=== PATIENT | male | born 1970 | race Two or more races ===

== ENCOUNTER 2024-10-20 13:34 | Inpatient (IN) | payer OTHER, MEDICAID ==
[~2024-10-20] VITALS: Ht 172.7 cm; Wt 111.1 kg
[~2024-10-20 13:34] MED LIST: NORPTMEDS CO
--- NOTE | 2024-10-20 13:40 | ED.PDOC ---
History of Present Illness HPI Comments 54-year-old male brought by paramedics because shortness a breath for the past two days. Patient says that shortness a breath is upon rest and exertion. History of hypertension diabetes he does take Lasix but he denies CHF. 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 Blood pressure on arrival 140/87 with a heart rate of 116. Denies any other symptoms. Chief Complaint: Shortness of Breath Time Seen by MD: 13:36 Primary Care Provider: PIPO Reviewed Notes: Nurses Notes, Medications, Allergies Allergies: Coded Allergies: NO KNOWN ALLERGIES (Unverified , 07/25/13) Home Meds Reported Medications No Reported Medication (NO REPORTED MEDICATION) Ea, 0 CO UNK, EA PATIENT HAS NO REPORTED MEDICATIONS 07/25/13 Information Source: Patient, Emergency Med Personnel Mode of Arrival: EMS Severity: Moderate Timing: Days Duration: Since onset Past Medical History PAST MEDICAL HISTORY: CVA, DM, HTN Surgical History: Denies all surgeries Family History Family History: Unknown Social History Smoker: Non-Smoker Alcohol: Denies ETOH Use Drugs: Denies Drug Use Lives In: Home Constitutional: denies: chills, diaphoresis, fatigue, fever, malaise, sweats, weakness, others EENTM: denies: blurred vision, double vision, ear bleeding, ear discharge, ear drainage, ear pain, ear ringing, eye pain, eye redness, hearing loss, mouth pain, mouth swelling, nasal discharge, nose bleeding, nose congestion, nose pain, photophobia, tearing, throat pain, throat swelling, voice changes, others Respiratory: reports: shortness of breath; denies: cough, hemoptysis, orthopnea, SOB at rest, SOB with excertion, stridor, wheezing, others Cardiovascular: denies: chest pain, dizzy spells, diaphoresis, Dyspnea on exertion, edema, irregular heart beat, left arm pain, lightheadedness, palpitations, PND, syncope, others Gastrointestinal: denies: abdomen distended, abdominal pain, blood streaked bowels, constipated, diarrhea, dysphagia, difficulty swallowing, hematemesis, melena, nausea, poor appetite, poor fluid intake, rectal bleeding, rectal pain, vomiting, others Genitourinary: denies: burning, dysuria, flank pain, frequency, hematuria, incontinence, penile discharge, penile sore, pain, testicle pain, testicle swelling, urgency, others Neurological: denies: dizziness, fainting, headache, left sided numbness, left sided weakness, numbness, paresthesia, pre-existing deficit, right sided numbness, right sided weakness, seizure, speech problems, tingling, tremors, weakness, others Musculoskeletal: denies: back pain, gout, joint pain, joint swelling, muscle pain, muscle stiffness, neck pain, others Integumetry: denies: bruises, change in color, change in hair/nails, dryness, laceration, lesions, lumps, rash, wounds, others Allergic/Immunocompromised: denies: Difficulty Healing, Frequent Infections, Hives, Itching, others Hematologic/Lymphatic: denies: anemia, blood clots, easy bleeding, easy bruising, swollen glands, others Endocrine: denies: excessive hunger, excessive sweating, excessive thirst, excessive urination, flushing, intolerance to cold, intolerance to heat, unexplained weight gain, unexplained weight loss, others Psychiatric: denies: anxiety, bipolar disorder, depression, hopeless, panic disorder, schizophrenia, sleepless, suicidal, others Physical Exam General Appearance: Moderate Distress HEENT: Normal ENT Inspection, Pharynx Normal, TMs Normal Neck: Full Range of Motion, Non-Tender, Normal, Normal Inspection Respiratory: Chest Non-Tender, Lungs Clear, No Accessory Muscle Use, No Respiratory Distress, Normal Breath Sounds Cardiovascular: No Edema, No JVD, No Murmur, No Gallop, Normal Peripheral Pulses, Tachycardia Breast Exam: Deferred Gastrointestinal: No Organomegaly, Non Tender, No Pulsatile Mass, Normal Bowel Sounds, Soft Genitalia: Deferred Pelvic: Deferred Rectal: Deferred Extremities: No calf tenderness, Normal capillary refill, Normal range of motion, Non-tender, No pedal edema, Swelling (Mild bilateral lower extremity) Musculoskeletal : Apperance: Normal Neurologic: Alert, director payment II-XII nml as Tested, No Motor Deficits, Normal Affect, Normal Mood, No Sensory Deficits Cerebellar Function: NOT DONE Reflexes: NOT DONE Skin: Dry, Normal Color, Warm Peripheral Pulses: 3+ Radial (R), 3+ Radial (L) Lymphatic: No Adenopathy Was a procedure done? Was a procedure done?: No Differential Dx Considerations may include: CHF X-Ray, Labs, Meds, VS Vital Signs Date Time Temp Pulse Resp B/P (MAP) Pulse Ox O2 Delivery O2 Flow Rate FiO2 10/20/24 13:39 98.7 116 18 140/87 (104) 96 98.7 Lab Test 10/20/24 13:48 Range/Units White Blood Count 6.9 4.4-10.8 10^3/uL Red Blood Count 4.92 4.5-5.90 10^6/uL Hemoglobin 15.6 13.5-17.5 g/dL Hematocrit 46.1 41.0-53.0 % Mean Corpuscular Volume 93.5 80.0-100.0 fL Mean Corpuscular Hemoglobin 31.7 28.0-32.0 pg Mean Corpuscular Hemoglobin Concent 33.9 32.0-36.0 g/dL Red Cell Distribution Width 13.6 11.8-14.3 % Platelet Count 343 140-450 10^3/uL Mean Platelet Volume 7.0 6.9-10.8 fL Neutrophils (%) (Auto) 74.3 37.0-80.0 % Lymphocytes (%) (Auto) 18.4 10.0-50.0 % Monocytes (%) (Auto) 6.2 0.0-12.0 % Eosinophils (%) (Auto) 0.7 0.0-7.0 % Basophils (%) (Auto) 0.4 0.0-2.0 % Neutrophils # (Auto) 5.2 1.6-8.6 10 ^3/uL Lymphocytes # (Auto) 1.3 0.4-5.4 10 ^3/uL Monocytes # (Auto) 0.4 0-1.3 10 ^3/uL Eosinophils # (Auto) 0 0-0.8 10 ^3/uL Basophils # (Auto) 0 0-0.2 10 ^3/uL Nucleated Red Blood Cells 0.0 % Sodium Level 139 136-145 mmol/L Potassium Level 3.9 3.5-5.1 mmol/L Chloride Level 103 98-107 mmol/L Carbon Dioxide Level 28 20-31 mmol/L Anion Gap 8 5-15 Blood Urea Nitrogen 13 9-23 mg/dL Creatinine 0.96 0.700-1.30 mg/dL Glomerular Filtration Rate Calc 93 >90 mL/min BUN/Creatinine Ratio 13.5 10.0-20.0 Serum Glucose 189 H 74-106 mg/dL Calcium Level 10.3 8.7-10.4 mg/dL Troponin I High Sensitivity 8 </=54 ng/L Patient alert. Vitals stable. Complaining of shortness a breath. Answering questions. Heart rate is high. Bilateral lower extremity swelling. He is on Lasix. Reviewed his history. Continue monitoring. Time of 1ST Reevaluation: 13:38 Reevaluation 1ST: Unchanged Patient Education/Counseling: Diagnosis, Treatment, Prognosis Family Education/Counseling: No Family Present Departure 1 Departure Time of Disposition: 13:39 Impression: Primary Impression: CHF (congestive heart failure) Qualified Codes: I50.43 - Acute on chronic combined systolic (congestive) and diastolic (congestive) heart failure Disposition: ADMITTED INPATIENT Admit to: Med Surg Condition: Guarded Critical Care Note Critical Care Time?: No Stability Stability form required: No Heart Score Heart Score: Heart Score Response (Comments) Value History Slightly Suspicious 0 EKG Normal 0 Age 45-64 1 Risk Factors >3 or Hx ASHD 2 Troponin Normal limit 0 Total 3 SEBASTIEN CHOI MD October 20, 2024 13:40
[2024-10-20 14:05] LABS: Basophils # (auto) 0 10 ^3/uL (0-0.2); Basophils % (auto) 0.4 % (0.0-2.0); Eosinophils # (auto) 0 10 ^3/uL (0-0.8); Eosinophils % (auto) 0.7 % (0.0-7.0); Hematocrit 46.1 % (41.0-53.0); Hemoglobin 15.6 g/dL (13.5-17.5); Lymphocytes # (auto) 1.3 10 ^3/uL (0.4-5.4); Lymphocytes % (auto) 18.4 % (10.0-50.0); Mean Corpuscular Hemoglobin 31.7 pg (28.0-32.0); Mean Corpuscular Hgb Conc. 33.9 g/dL (32.0-36.0); Mean Corpuscular Volume 93.5 fL (80.0-100.0); Monocytes # (auto) 0.4 10 ^3/uL (0-1.3); Monocytes % (auto) 6.2 % (0.0-12.0); Neutrophils # (auto) 5.2 10 ^3/uL (1.6-8.6); Neutrophils % (auto) 74.3 % (37.0-80.0); Platelet Count (auto) 343 10^3/uL (140-450); Red Blood Cells 4.92 10^6/uL (4.5-5.90); Red Cell Distribution Width 13.6 % (11.8-14.3); White Blood Cell 6.9 10^3/uL (4.4-10.8)
[2024-10-20 14:12] LABS: Chloride 103 mmol/L (98-107); Potassium 3.9 mmol/L (3.5-5.1); Sodium 139 mmol/L (136-145)
[2024-10-20 14:13] LABS: Anion Gap 8 (5-15); Calcium 10.3 mg/dL (8.7-10.4); Carbon Dioxide 28 mmol/L (20-31)
[2024-10-20 14:18] LABS: BUN/Creatinine Ratio 13.5 (10.0-20.0); Blood Urea Nitrogen 13 mg/dL (9-23)
[2024-10-20 14:19] LABS: Glucose 189 mg/dL (74-106)
--- NOTE | 2024-10-20 14:19 | DVH ---
XY CHEST PORTABLE, HISTORY: sob COMPARISON: None None TECHNICAL DATA: 1 view of the chest was obtained. FINDINGS: Lines and tubes: None Cardiomediastinal silhouette: normal Pulmonary vasculature: normal Lung expansion: normal Lung airspace: normal Lung interstitium: normal Pleura: normal Pneumothorax: no Bones: Unremarkable Other: no IMPRESSION: No acute intrathoracic abnormality.
[2024-10-20 15:09] VITALS: PULSE 109; RESP 17; O2SAT 96
--- NOTE | 2024-10-20 15:50 | DVHHP2 ---
History of Present Illness Reason for Visit: sob History of Present Illness 54-year-old male past medical history hypertension diabetes CVA with right-sided weakness hyperlipidemia denies surgical history chief complaint patient states he has been shortness of the breath that has been going on for two days patient states it is shortness of the breath worse on exertion. Patient denies any chest pain he does complain of bilateral lower extremity swelling more on the right than left denies any calf pain patient states he has been has not been able to sleep due to the pain he denies any history heart failure patient states he is taking his meds as prescribed he is not on blood thinners when evaluating patient's labs and imaging from the ED CBC was unremarkable glucose was 189 otherwise CMP unremarkable chest x-ray unremarkable with these findings we will admit patient add troponin D-dimer order echocardiogram ultrasound to rule out PE if echocardiogram is abnormal when need to consider Cards consult Past Medical History see hpi above Past Surgical History see hpi above Family History Reviewed, non-contributory to the management of this case. Past Social History The patient lives at home, denies smoking, alcohol or illicit drugs abuse. Review of Systems Constitutional: No: Fever, Chills, Sweats, Weakness, Malaise, Other Eyes: No: Pain, Vision change, Conjunctivae inflammation, Eyelid inflammation, Other, Redness ENT: No: Ear pain, Ear discharge, Nose pain, Nose discharge, Nose congestion, Mouth pain, Mouth swelling, Throat pain, Throat swelling, Other Respiratory: Shortness of breath, SOB with excertion; No: Cough, Dry, Wheezing, Hemoptysis, Pleuritic Pain, Sputum, Wheezing, Other Cardiovascular: No: Chest Pain, Palpitations, Orthopnea, Paroxysmal Noc. Dyspnea, Edema, Lt Headedness, Other Gastrointestinal: No: Nausea, Vomiting, Abdominal Pain, Diarrhea, Constipation, Melena, Hematochezia, Other Genitourinary: No Dysuria, No Frequency, No Incontinence, No Hematuria, No Retention, No Other Musculoskeletal: No: other, neck pain, shoulder pain, arm pain, back pain, hand pain, leg pain, foot pain Skin: No: Rash, Lesions, Jaundice, Bruising, Other Neurological: No: Weakness, Numbness, Incoordination, Change in speech, Confusion, Seizures, Other Allergies: Coded Allergies: NO KNOWN ALLERGIES (Unverified , 07/25/13) Exam Vital Signs Vital Signs Date Time Temp Pulse Resp B/P (MAP) Pulse Ox O2 Delivery O2 Flow Rate FiO2 10/20/24 15:09 98.4 109 17 150/90 (110) 96 98.4 10/20/24 15:09 Room Air* 0 21 General Appearance: Alert, Oriented X3, Cooperative, No acute distress HEENT: Atraumatic, PERRLA, EOMI, Mucous membr. moist/pink Respiratory: Clear to auscultation, Normal air movement Cardiovascular: Regular rate, Normal S1, Normal S2, No murmurs Abdominal: Normal bowel sounds, Soft, No tenderness, No hepatospenomegaly, No masses Extremities: No clubbing, No cyanosis, No edema, Normal pulses, No tenderness/swelling Skin: No rashes, No breakdown, No significant lesion Neuro: Normal gait, Normal speech, Strength at 5/5 X4 ext, Normal tone, Sensation intact, Cranial nerves 3-12 NL, Other (right side weakness from prior stroke ) Psych/Mental Status: Mental status NL, Mood NL Labs/Xrays Chest x-ray unremarkable I reviewed labs, imaging CT scan abdomen pelvis, EKG and all diagnostic studies on this patient from ED records and the medical chart Labs Test 10/20/24 13:48 Range/Units White Blood Count 6.9 4.4-10.8 10^3/uL Red Blood Count 4.92 4.5-5.90 10^6/uL Hemoglobin 15.6 13.5-17.5 g/dL Hematocrit 46.1 41.0-53.0 % Mean Corpuscular Volume 93.5 80.0-100.0 fL Mean Corpuscular Hemoglobin 31.7 28.0-32.0 pg Mean Corpuscular Hemoglobin Concent 33.9 32.0-36.0 g/dL Red Cell Distribution Width 13.6 11.8-14.3 % Platelet Count 343 140-450 10^3/uL Mean Platelet Volume 7.0 6.9-10.8 fL Neutrophils (%) (Auto) 74.3 37.0-80.0 % Lymphocytes (%) (Auto) 18.4 10.0-50.0 % Monocytes (%) (Auto) 6.2 0.0-12.0 % Eosinophils (%) (Auto) 0.7 0.0-7.0 % Basophils (%) (Auto) 0.4 0.0-2.0 % Neutrophils # (Auto) 5.2 1.6-8.6 10 ^3/uL Lymphocytes # (Auto) 1.3 0.4-5.4 10 ^3/uL Monocytes # (Auto) 0.4 0-1.3 10 ^3/uL Eosinophils # (Auto) 0 0-0.8 10 ^3/uL Basophils # (Auto) 0 0-0.2 10 ^3/uL Nucleated Red Blood Cells 0.0 % Sodium Level 139 136-145 mmol/L Potassium Level 3.9 3.5-5.1 mmol/L Chloride Level 103 98-107 mmol/L Carbon Dioxide Level 28 20-31 mmol/L Anion Gap 8 5-15 Blood Urea Nitrogen 13 9-23 mg/dL Creatinine 0.96 0.700-1.30 mg/dL Glomerular Filtration Rate Calc 93 >90 mL/min BUN/Creatinine Ratio 13.5 10.0-20.0 Serum Glucose 189 H 74-106 mg/dL Calcium Level 10.3 8.7-10.4 mg/dL Troponin I High Sensitivity 8 </=54 ng/L Assessment/Plan Assessment/Plan acute dyspnea without hypoxia cxr normal ordered ddimer fu results ordered lovenox 1mg/kg for now if ddimer is positive order ct angio ordered echo to check cardiac function and ef fu results if abnormal consult cards pt was provided lasix x1 dose in er 02 prn to keep sats >92% acute ble edema ordered us eval for dvt ordered lovenox for now chronic problems htn dm ISS cva with right side weakness fen/ppx diet hl scd lovenox plan admit to medicine Plan discussed with: Patient Date of Service: October 20, 2024 Billing Provider: DUY DOOLEY DNP Common Visit Codes: 36469-MRMAYRG INP/OBS CARE (HIGH) DUY DOOLEY DNP October 20, 2024 15:50
[2024-10-20] MEDS ORDERED: ONDANSETRON HCL 4 MG/2 ML VIAL IV PRN (16:00)
[2024-10-20] MEDS ORDERED: TEMAZEPAM 15 MG CAP PO PRN (16:00)
[2024-10-20] MEDS ORDERED: MORPHINE SULFATE INJ 2 MG/ml SYRG IV PRN (16:00)
[2024-10-20] MEDS ORDERED: DOCUSATE SOD 100 MG CAP PO PRN (16:00)
[2024-10-20] MEDS ORDERED: NITROGLYCERIN 0.4 MG SL TAB SL PRN (16:00)
[2024-10-20] MEDS ORDERED: DEXTROSE (50%) 50ML SYRG IV PRN (16:00)
[2024-10-20] MEDS ORDERED: MORPHINE SULFATE 4 MG/ML SYR/VIAL IV PRN (16:45)
--- NOTE | 2024-10-20 16:56 | DVH ---
Procedure: US LT Lower DVT Study Date and Requested Time: 10/20/2024 04:03 PM History: eval for dvt Comparison: None Technique: Multiple high resolution lundberg-scale images with and without compression obtained of the le ft lower extremity veins, including the common femoral vein, deep femoral vein, proximal mid and dist al superficial femoral vein, and popliteal vein. Additional limited images of the greater saphenous v ein also obtained. Augmentation performed as indicated. Color and spectral doppler flow images obtain ed as indicated. Findings: No visible intraluminal venous thrombus. No evidence of incompressibility or abnormal color or spectr al Doppler flow visualized in the left lower extremity veins including, the common femoral vein, deep femoral vein, proximal mid and distal superficial femoral vein, and popliteal vein. Greater saphenou s vein grossly unremarkable. Impression: No sonographic evidence of left lower extremity deep venous thrombosis.
[2024-10-20] MEDS: ACCU-CHEK COMFORT CURVE STRIP VI SCH (17:00)
[2024-10-20] MEDS: InsuLIN REG 1unit/0.01ml Soln (100units/ml) SC SCH (17:00)
[2024-10-20 17:11] LABS: INR 0.97 (0.9-1.15); Prothrombin Time 10.3 sec (9.3-11.8)
[2024-10-20] MEDS ORDERED: ASPI1TAB20 PO (20:17)
[2024-10-20] MEDS ORDERED: FURO1TAB33 PO (20:17)
[2024-10-20] MEDS ORDERED: ATOR20TA PO (20:17)
[2024-10-20] MEDS ORDERED: HYDR25TA4 PO (20:17)
[2024-10-20] MEDS ORDERED: METF500S3 PO (20:17)
[2024-10-20] MEDS ORDERED: ATOR10TA PO (20:17)
[2024-10-20] MEDS ORDERED: HYDR12.59 PO (20:17)
[2024-10-20] MEDS ORDERED: APIX2.5T PO (20:17)
[2024-10-20] MEDS ORDERED: HYDR-4902 PO (20:17)
[2024-10-20] MEDS ORDERED: HYDR50TA47 PO (20:41)
[2024-10-20] MEDS ORDERED: METH-1181 PO (20:41)
[2024-10-20] MEDS ORDERED: DICL1.3P TD (20:41)
[2024-10-20] MEDS ORDERED: ATOR10TA52 PO (20:41)
[2024-10-20] MEDS ORDERED: LOSA-535 PO (20:41)
[2024-10-20] MEDS: ENOXAPARIN SOD 40 MG/0.4 ML SYRINGE SC SCH (23:42)
[2024-10-20] MEDS: HYDROcodone-ACET 5/325MG TAB PO PRN (23:42)
[2024-10-21] VITALS (10 sets, daily range): BP systolic 132–150; BP diastolic 66–95; PULSE 66–84; RESP 16–20; TEMP 97.5–97.7; O2SAT 95–98
[2024-10-21 07:52] LABS: Basophils # (auto) 0 10 ^3/uL (0-0.2); Basophils % (auto) 0.4 % (0.0-2.0); Eosinophils # (auto) 0.1 10 ^3/uL (0-0.8); Eosinophils % (auto) 1.5 % (0.0-7.0); Hematocrit 41.2 % (41.0-53.0); Hemoglobin 13.9 g/dL (13.5-17.5); Lymphocytes # (auto) 2.8 10 ^3/uL (0.4-5.4); Lymphocytes % (auto) 40.4 % (10.0-50.0); Mean Corpuscular Hemoglobin 31.6 pg (28.0-32.0); Mean Corpuscular Hgb Conc. 33.6 g/dL (32.0-36.0); Mean Corpuscular Volume 93.9 fL (80.0-100.0); Monocytes # (auto) 0.5 10 ^3/uL (0-1.3); Monocytes % (auto) 7.5 % (0.0-12.0); Neutrophils # (auto) 3.5 10 ^3/uL (1.6-8.6); Neutrophils % (auto) 50.2 % (37.0-80.0); Nucleated Red Blood Cells % 0.1 %; Platelet Count (auto) 298 10^3/uL (140-450); Red Blood Cells 4.39 10^6/uL (4.5-5.90); Red Cell Distribution Width 13.5 % (11.8-14.3)
[2024-10-21 08:10] LABS: Alanine Aminotransferase 11 U/L (7-40); Alkaline Phosphatase 56 U/L (46-116); Anion Gap 10 (5-15); BUN/Creatinine Ratio 13.3 (10.0-20.0); Blood Urea Nitrogen 10 mg/dL (9-23); Calcium 9.8 mg/dL (8.7-10.4); Carbon Dioxide 25 mmol/L (20-31); Chloride 107 mmol/L (98-107); Glucose 96 mg/dL (74-106); Sodium 142 mmol/L (136-145); Total Protein 6.6 g/dL (5.7-8.2)
[2024-10-21 08:11] LABS: Albumin 4.3 g/dL (3.2-4.8)
[2024-10-21 08:13] LABS: Aspartate Aminotransferase 12 U/L (13-40); Potassium 3.4 mmol/L (3.5-5.1)
--- NOTE | 2024-10-21 13:48 | DVHPN2 ---
Reviewed: Care Plan, H&P, Labs, Medications, Previous Orders, Radiology Changes from previous H/P or p: No Changes General: Per HPI Eyes: No Pain, No Vision change, No Conjunctivae inflammation, No Eyelid inflammation, No Other, No Redness ENT: No Ear pain, No Ear discharge, No Nose pain, No Nose discharge, No Nose congestion, No Mouth pain, No Mouth swelling, No Throat pain, No Throat swelling, No Other Cardiovascular: No Chest Pain, No Palpitations, No Orthopnea, No Paroxysmal Noc. Dyspnea, No Edema, No Lt Headedness, No Other Respiratory: No Cough, No Dry; Shortness of breath, SOB with excertion; No Wheezing, No Hemoptysis, No Pleuritic Pain, No Sputum, No Other Gastrointestinal: No Nausea, No Vomiting, No Abdominal Pain, No Diarrhea, No Constipation, No Melena, No Hematochezia, No Other Genitourinary: No Dysuria, No Frequency, No Incontinence, No Hematuria, No Retention, No Other Musculoskeletal: No other, No neck pain, No shoulder pain, No arm pain, No back pain, No hand pain, No leg pain, No foot pain Skin: No Rash, No Lesions, No Jaundice, No Bruising, No Other Objective Vitals Vital Signs Date Time Temp Pulse Resp B/P (MAP) Pulse Ox O2 Delivery O2 Flow Rate FiO2 10/21/24 13:22 97.7 70 16 139/88 (105) 96 97.7 10/21/24 08:00 Room Air* 0 21 General Appearance: Alert, Oriented X3, Cooperative Chest/Breasts: Discharge Cardiovascular: Regular rate, Normal S1, Normal S2 Neuro: Normal gait, Normal speech Medications Current Medications Medications Dose Ordered Sig/Gonzales Route Start Time Stop Time Status Last Admin Dose Admin Temazepam 15 mg QHSP PRN PO 10/20/24 16:00 Ondansetron HCl 4 mg Q4HP PRN IV 10/20/24 16:00 Docusate Sodium 100 mg BIDPRN PRN PO 10/20/24 16:00 Morphine Sulfate 2 mg Q4HPRN PRN IV 10/20/24 16:00 Cancel Enoxaparin Sodium 100 mg BID SC 10/20/24 22:00 10/21/24 09:25 100 MG Nitroglycerin 0.4 mg Q5MINP PRN SL 10/20/24 16:00 Diagnostic Test (Pha) 1 strip ACHS 10/20/24 17:00 10/21/24 11:42 1 STRIP Insulin Human Regular ACHS SC 10/20/24 17:00 10/20/24 23:00 3 UNITS Dextrose 50 ml UD PRN IV 10/20/24 16:00 Morphine Sulfate 2 mg Q4HPRN PRN IV 10/20/24 16:45 Acetaminophen/ Hydrocodone Bitart 1 tab Q6HPRN PRN PO 10/20/24 23:45 10/21/24 05:52 1 TAB Hydralazine HCl 10 mg Q6HP PRN IV 10/20/24 23:45 Laboratory Results Laboratory Tests 10/21/24 05:58 Chemistry Test 10/20/24 13:48 10/21/24 05:58 Calcium Level 10.3 mg/dL (8.7-10.4) 9.8 mg/dL (8.7-10.4) Albumin 4.3 g/dL (3.2-4.8) Total Protein 6.6 g/dL (5.7-8.2) Coagulation Test 10/20/24 16:30 Prothrombin Time 10.3 sec (9.3-11.8) Prothrombin Time INR 0.97 (0.9-1.15) D-Dimer, Quantitative < 0.19 mg/L FEU (0.0-0.49) Cardiac Markers Test 10/20/24 13:48 B-Type Natriuretic Peptide 14.38 pg/mL (0-100) LFT Test 10/21/24 05:58 Alanine Aminotransferase (ALT) 11 U/L (7-40) Alkaline Phosphatase 56 U/L (46-116) Aspartate Amino Transferase (AST) 12 U/L (13-40) L Total Bilirubin 1.0 mg/dL (0.2-1.0) Labs and/or images reviewed: Labs reviewed by me, Image(s) reviewed by me Assessment/Plan Assessment/Plan 54-year-old male past medical history hypertension diabetes CVA with right-sided weakness hyperlipidemia denies surgical history chief complaint patient states he has been shortness of the breath that has been going on for two days patient states it is shortness of the breath worse on exertion. Patient denies any chest pain he does complain of bilateral lower extremity swelling more on the right than left denies any calf pain patient states he has been has not been able to sleep due to the pain he denies any history heart failure patient states he is taking his meds as prescribed he is not on blood thinners when evaluating patient's labs and imaging from the ED CBC was unremarkable glucose was 189 otherwise CMP unremarkable chest x-ray unremarkable with these findings we will admit patient add troponin D-dimer order echocardiogram ultrasound to rule out PE if echocardiogram is abnormal when need to consider Cards consult acute dyspnea without hypoxia cxr normal ordered ddimer fu results ordered lovenox 1mg/kg for now if ddimer is positive order ct angio ordered echo to check cardiac function and ef fu results if abnormal consult cards pt was provided lasix x1 dose in er 02 prn to keep sats >92% acute ble edema ordered us eval for dvt ordered lovenox for now suspected diastolic CHF chronic problems htn dm ISS cva with right side weakness Plan discussed with: Patient Date of Service: October 21, 2024 Billing Provider: SHILOH BALLESTEROS DO Common Visit Codes: [id number] INP/OBS CARE(HIGH) SHILOH BALLESTEROS DO October 21, 2024 13:48
[2024-10-21 14:50] LABS: Magnesium 1.9 mg/dL (1.6-2.6)
--- NOTE | 2024-10-21 14:50 | DVHINCON2 ---
SONIA ESCAMILLA [facility] 10/21/24 1450: Date Seen: October 21, 2024 Referring Physician MD Clarisa Reason for Consultation Suspected CHF History of Present Illness This is a 54-year-old male patient who presents to emergency room with chief complaint of shortness of breath and bilateral lower extremity edema for three days prior to emergency room arrival. Cardiology has been consulted at this time for suspected CHF. Initial twelve lead electrocardiogram reveals normal sinus rhythm without any significant ST segment changes. Serial troponin levels have been negative. The patient denies any chest pain. He describes orthopnea at night. Initial BNP level of 14.38pg/mL. Significant past medical history includes hypertension, dyslipidemia, type 2 diabetes mellitus, CVA with right- sided deficit, arthritis, and obesity. Past Medical History Past medical history reviewed. No other significant than mentioned above. Past Surgical History Denies any previous surgeries Family History: Patient reports no known family medical history. Family History Family history reviewed. Social History Denies the use of tobacco, alcohol or illicit drugs. Allergies: Coded Allergies: NO KNOWN ALLERGIES (Unverified , 07/25/13) Home Meds Reported Medications Atorvastatin Calcium (ATORVASTATIN CALCIUM) 10 Mg Tab, 1 TAB PO DAILY, #30 TAB 5 Refills 10/20/24 Diclofenac Epolamine (Flector) 1.3 % Dis, 1.3 % TD, DIS 10/20/24 Losartan Potassium (Losartan Potassium) 100 Mg Tab, 1 TAB PO DAILY, #30 TAB 5 Refills 10/20/24 Methocarbamol (Methocarbamol) 500 Mg Tab, 500 MG PO, TAB 10/20/24 Hydralazine Hcl (Hydralazine Hcl) 50 Mg Tab, 1 TAB PO TID, #90 TAB 5 Refills 10/20/24 Hydrocodone-Acetaminophen (Hydrocodone Bitartrate/AC 5-325 mg) 1 Tab Tab, 1 TAB PO, TAB 10/20/24 Hydrochlorothiazide (Hydrochlorothiazide) 25 Mg Tab, 50 MG PO, TAB 10/20/24 Aspirin (Aspir-81) 81 Mg Tab, 1 TAB PO DAILY, #30 TAB 5 Refills 10/20/24 Metformin HCl (Metformin Hydrochloride) 500 Mg/5 Ml Mckenna, 500 MG PO, ML 10/20/24 Discontinued Reported Medications Atorvastatin Calcium (Lipitor) 20 Mg Tab, 1 TAB PO DAILY, #90 TAB 1 Refill 10/20/24 Apixaban Base (ELIQUIS) 2.5 Mg Tab, 2.5 MG PO BID, TAB 10/20/24 Home Meds Home medications reviewed. Current Medications Current Medications Medications (Trade) Dose Ordered Sig/Gonzales Route PRN Reason Start Time Stop Time Status Last Admin Temazepam (Restoril) 15 mg QHSP PRN PO FOR INSOMNIA 10/20/24 16:00 Ondansetron HCl (Zofran) 4 mg Q4HP PRN IV NAUSEA / VOMITING 10/20/24 16:00 Docusate Sodium (Colace Capsule) 100 mg BIDPRN PRN PO FOR CONSTIPATION 10/20/24 16:00 Morphine Sulfate 2 mg Q4HPRN PRN IV SEVERE PAIN (7-10 PAIN SCALE) 10/20/24 16:00 Cancel Enoxaparin Sodium (Lovenox) 100 mg BID SC 10/20/24 22:00 10/21/24 09:25 Nitroglycerin (Ntrostat Sublingual) 0.4 mg Q5MINP PRN SL FOR CHEST PAIN 10/20/24 16:00 Diagnostic Test (Pha) (Accu-Chek Comfort Curve T) 1 strip ACHS 10/20/24 17:00 10/21/24 11:42 Insulin Human Regular (InsuLIN R) ACHS SC 10/20/24 17:00 10/20/24 23:00 Dextrose 50 ml UD PRN IV Blood Sugar LESS THAN 60 10/20/24 16:00 Morphine Sulfate 2 mg Q4HPRN PRN IV SEVERE PAIN (7-10 PAIN SCALE) 10/20/24 16:45 Acetaminophen/ Hydrocodone Bitart ([place] 5/325MG Tab) 1 tab Q6HPRN PRN PO MODERATE PAIN (4-6 PAIN SCALE) 10/20/24 23:45 10/21/24 05:52 Hydralazine HCl (Apresoline Injection) 10 mg Q6HP PRN IV SBP>150 10/20/24 23:45 Furosemide (Lasix Injection) 40 mg BIDD IV 10/21/24 18:00 UNV Review of Systems Constitutional: No symptom reported Ears, Nose, & Throat: No symptom reported Eyes: No symptom reported Neurological: No symptoms reported Pulmonary/Respiratory: Shortness of breath Cardiovascular: Bilateral lower extremity edema Gastrointestinal: No symptom reported Genitourinary: No symptom reported Musculoskeletal: No symptom reported Skin: No symptom reported Psychiatric: No symptom reported Endocrine: No symptom reported Hematologic/Lymphatic: No symptom reported Vital Signs Vital Signs Date Time Temp Pulse Resp B/P (MAP) Pulse Ox O2 Delivery O2 Flow Rate FiO2 10/21/24 13:22 97.7 70 16 139/88 (105) 96 97.7 10/21/24 08:00 Room Air* 0 21 Physical Exam General Appearance: Cooperative. Obese Pulmonary/Respiratory: Clear, bilateral breaths sounds. Cardiovascular/Chest: Regular rate and rhythm. Peripheral Pulses: 2+ Radial (R). 2+ Radial (L). 2+ Pedal (R). 2+ Pedal (L) Abdominal Exam: Normal bowel sounds. Ankle Exam: 1+ bilateral ankle edema Lower extremities: 1+ bilateral lower extremity edema Neuro/Mental Status: A/OX4, coherent. Thoughts/Psych: Normal thought pattern. Appropriate mood and affect. Good judgment and insight. Appearance: No acute distress. Skin Exam: Normal inspection. Normal color. Warm and dry. Labs/Diagnostic Data Labs Test 10/21/24 11:23 10/21/24 05:58 10/20/24 18:25 10/20/24 16:30 Range/Units POC Glucose 118 H 70-106 mg/dl White Blood Count 7.0 4.4-10.8 10^3/uL Red Blood Count 4.39 L 4.5-5.90 10^6/uL Hemoglobin 13.9 13.5-17.5 g/dL Hematocrit 41.2 # 41.0-53.0 % Mean Corpuscular Volume 93.9 80.0-100.0 fL Mean Corpuscular Hemoglobin 31.6 28.0-32.0 pg Mean Corpuscular Hemoglobin Concent 33.6 32.0-36.0 g/dL Red Cell Distribution Width 13.5 11.8-14.3 % Platelet Count 298 140-450 10^3/uL Mean Platelet Volume 7.2 6.9-10.8 fL Neutrophils (%) (Auto) 50.2 37.0-80.0 % Lymphocytes (%) (Auto) 40.4 10.0-50.0 % Monocytes (%) (Auto) 7.5 0.0-12.0 % Eosinophils (%) (Auto) 1.5 0.0-7.0 % Basophils (%) (Auto) 0.4 0.0-2.0 % Neutrophils # (Auto) 3.5 1.6-8.6 10 ^3/uL Lymphocytes # (Auto) 2.8 0.4-5.4 10 ^3/uL Monocytes # (Auto) 0.5 0-1.3 10 ^3/uL Eosinophils # (Auto) 0.1 0-0.8 10 ^3/uL Basophils # (Auto) 0 0-0.2 10 ^3/uL Nucleated Red Blood Cells 0.1 % Sodium Level 142 136-145 mmol/L Potassium Level 3.4 L 3.5-5.1 mmol/L Chloride Level 107 98-107 mmol/L Carbon Dioxide Level 25 20-31 mmol/L Anion Gap 10 5-15 Blood Urea Nitrogen 10 9-23 mg/dL Creatinine 0.75 0.700-1.30 mg/dL Glomerular Filtration Rate Calc 106 >90 mL/min BUN/Creatinine Ratio 13.3 10.0-20.0 Serum Glucose 96 74-106 mg/dL Calcium Level 9.8 8.7-10.4 mg/dL Total Bilirubin 1.0 0.2-1.0 mg/dL Aspartate Amino Transferase (AST) 12 L 13-40 U/L Alanine Aminotransferase (ALT) 11 7-40 U/L Alkaline Phosphatase 56 46-116 U/L Total Protein 6.6 5.7-8.2 g/dL Albumin 4.3 3.2-4.8 g/dL Troponin I High Sensitivity 10 </=54 ng/L Prothrombin Time 10.3 9.3-11.8 sec Prothrombin Time INR 0.97 0.9-1.15 D-Dimer, Quantitative < 0.19 0.0-0.49 mg/L FEU Test 10/20/24 13:48 Range/Units B-Type Natriuretic Peptide 14.38 0-100 pg/mL Assessment Rule out structural heart disease Hypertension Hyperlipidemia Type 2 diabetes mellitus History of CVA with right-sided deficit Morbid obesity Plan/Recommendation We will continue with the following plan/recommendations (Dr. Arango): * Obtain transthoracic echocardiogram to evaluate cardiac function * [place] heart failure diagnostic criteria: Negative * Diuresis as tolerated * Blood pressure control * Close Cardiac surveillance Patient seen and examined at bedside with . Thank you for allowing us to care for this patient. Please call with any questions or concerns. Critical care time spent: 44 minutes This medical document was created using an electronic medical record system with voice recognition software and computerized dictation system. Although this document has been carefully reviewed, there might still be some phonetic and typographical errors. Occasional wrong-word or ``sound-alike substitutions may have occurred due to the inherent limitations of voice recognition software. These areas are purely typographical due to imperfections of the software programs and do not reflect any compromise in the patient's medical care. Please read the chart carefully and recognize, using context, where these substitutions have occurred. Plan discussed with: Patient NYHA Physical activity limitations: NA Date of Service: October 21, 2024 Billing Provider: SONIA ESCAMILLA Cardiology Common Codes: [id number] INP/OBS CARE (High) Cardiology Consultation Codes: [id number] CONSULT <45MIN TANNER ARANGO MD 10/21/24 1847: Family History: Patient reports no known family medical history. Allergies: Coded Allergies: NO KNOWN ALLERGIES (Unverified , 07/25/13) Home Meds Reported Medications Atorvastatin Calcium (ATORVASTATIN CALCIUM) 10 Mg Tab, 1 TAB PO DAILY, #30 TAB 5 Refills 10/20/24 Diclofenac Epolamine (Flector) 1.3 % Dis, 1.3 % TD, DIS 10/20/24 Losartan Potassium (Losartan Potassium) 100 Mg Tab, 1 TAB PO DAILY, #30 TAB 5 Refills 10/20/24 Methocarbamol (Methocarbamol) 500 Mg Tab, 500 MG PO, TAB 10/20/24 Hydralazine Hcl (Hydralazine Hcl) 50 Mg Tab, 1 TAB PO TID, #90 TAB 5 Refills 10/20/24 Hydrocodone-Acetaminophen (Hydrocodone Bitartrate/AC 5-325 mg) 1 Tab Tab, 1 TAB PO, TAB 10/20/24 Hydrochlorothiazide (Hydrochlorothiazide) 25 Mg Tab, 50 MG PO, TAB 10/20/24 Aspirin (Aspir-81) 81 Mg Tab, 1 TAB PO DAILY, #30 TAB 5 Refills 10/20/24 Metformin HCl (Metformin Hydrochloride) 500 Mg/5 Ml Mckenna, 500 MG PO, ML 10/20/24 Discontinued Reported Medications Atorvastatin Calcium (Lipitor) 20 Mg Tab, 1 TAB PO DAILY, #90 TAB 1 Refill 10/20/24 Apixaban Base (ELIQUIS) 2.5 Mg Tab, 2.5 MG PO BID, TAB 10/20/24 Plan/Recommendation pt seen with cv team doubt HF bnp is normal fu echo vte study is - Plan discussed with: Patient SONIA ESCAMILLA MORIS October 21, 2024 14:50 TANNER ARANGO MD October 21, 2024 18:47
--- NOTE | 2024-10-21 14:54 | ECG ---
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
[2024-10-21] MEDS: FUROSEMIDE 40 MG/4 ML VIAL IV SCH (17:53)
--- NOTE | 2024-10-21 20:53 | ECG ---
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
[2024-10-22] VITALS (7 sets, daily range): BP systolic 119–151; BP diastolic 80–107; PULSE 70–86; RESP 16–20; TEMP 97.8–98.4; O2SAT 94–99
[2024-10-22] MEDS: hydrALAZINE HCL 20 MG/ML VL IV PRN (09:36)
--- NOTE | 2024-10-22 12:18 | DVHPN2 ---
Reviewed: Care Plan, H&P, Labs, Medications, Previous Orders, Radiology Changes from previous H/P or p: No Changes General: Per HPI Eyes: No Pain, No Vision change, No Conjunctivae inflammation, No Eyelid inflammation, No Other, No Redness ENT: No Ear pain, No Ear discharge, No Nose pain, No Nose discharge, No Nose congestion, No Mouth pain, No Mouth swelling, No Throat pain, No Throat swelling, No Other Cardiovascular: No Chest Pain, No Palpitations, No Orthopnea, No Paroxysmal Noc. Dyspnea, No Edema, No Lt Headedness, No Other Respiratory: No Cough, No Dry; Shortness of breath, SOB with excertion; No Wheezing, No Hemoptysis, No Pleuritic Pain, No Sputum, No Other Gastrointestinal: No Nausea, No Vomiting, No Abdominal Pain, No Diarrhea, No Constipation, No Melena, No Hematochezia, No Other Genitourinary: No Dysuria, No Frequency, No Incontinence, No Hematuria, No Retention, No Other Musculoskeletal: No other, No neck pain, No shoulder pain, No arm pain, No back pain, No hand pain, No leg pain, No foot pain Skin: No Rash, No Lesions, No Jaundice, No Bruising, No Other Objective Vitals Vital Signs Date Time Temp Pulse Resp B/P (MAP) Pulse Ox O2 Delivery O2 Flow Rate FiO2 10/22/24 09:36 151/97 10/22/24 08:41 97.8 86 17 97 97.8 10/22/24 08:00 Room Air* 0 21 Intake/Output Intake and Output 10/22/24 07:00 Intake Total 1147 ml Output Total 800 ml Balance 347 ml Intake Oral 1147 ml Output Urine Total 800 ml # Voids 5 Medications Current Medications Medications Dose Ordered Sig/Gonzales Route Start Time Stop Time Status Last Admin Dose Admin Temazepam 15 mg QHSP PRN PO 10/20/24 16:00 Ondansetron HCl 4 mg Q4HP PRN IV 10/20/24 16:00 Docusate Sodium 100 mg BIDPRN PRN PO 10/20/24 16:00 Morphine Sulfate 2 mg Q4HPRN PRN IV 10/20/24 16:00 Cancel Enoxaparin Sodium 100 mg BID SC 10/20/24 22:00 10/21/24 20:20 100 MG Nitroglycerin 0.4 mg Q5MINP PRN SL 10/20/24 16:00 Diagnostic Test (Pha) 1 strip ACHS 10/20/24 17:00 10/22/24 05:22 1 STRIP Insulin Human Regular ACHS SC 10/20/24 17:00 10/21/24 20:30 3 UNITS Dextrose 50 ml UD PRN IV 10/20/24 16:00 Morphine Sulfate 2 mg Q4HPRN PRN IV 10/20/24 16:45 Acetaminophen/ Hydrocodone Bitart 1 tab Q6HPRN PRN PO 10/20/24 23:45 10/21/24 20:19 1 TAB Hydralazine HCl 10 mg Q6HP PRN IV 10/20/24 23:45 10/22/24 09:36 10 MG Furosemide 40 mg BIDD IV 10/21/24 18:00 10/22/24 05:22 40 MG Laboratory Results Laboratory Tests 10/21/24 05:58 Assessment/Plan Assessment/Plan 54-year-old male past medical history hypertension diabetes CVA with right-sided weakness hyperlipidemia denies surgical history chief complaint patient states he has been shortness of the breath that has been going on for two days patient states it is shortness of the breath worse on exertion. Patient denies any chest pain he does complain of bilateral lower extremity swelling more on the right than left denies any calf pain patient states he has been has not been able to sleep due to the pain he denies any history heart failure patient states he is taking his meds as prescribed he is not on blood thinners when evaluating patient's labs and imaging from the ED CBC was unremarkable glucose was 189 otherwise CMP unremarkable chest x-ray unremarkable with these findings we will admit patient add troponin D-dimer order echocardiogram ultrasound to rule out PE if echocardiogram is abnormal when need to consider Cards consult acute dyspnea without hypoxia cxr normal ordered ddimer fu results ordered lovenox 1mg/kg for now if ddimer is positive order ct angio ordered echo to check cardiac function and ef fu results if abnormal consult cards pt was provided lasix x1 dose in er 02 prn to keep sats >92% acute ble edema ordered us eval for dvt ordered lovenox for now suspected diastolic CHF chronic problems htn dm ISS cva with right side weakness Plan discussed with: Patient My Orders Orders - SHILOH BALLESTEROS DO Procedure Category Date Status Time * Cardiology Consult CONS 5/30/25 Transmitted 13:48 Furosemide Injection PHA 10/21/24 In Process (Lasix Injection) 18:00 Date of Service: October 22, 2024 Billing Provider: SHILOH BALLESTEROS DO Common Visit Codes: [id number] INP/OBS CARE(HIGH) SHILOH BALLESTEROS DO October 22, 2024 12:18
--- NOTE | 2024-10-22 14:34 | DVHSR ---
APPROVED REPORT EXAM: Two-dimensional and M-mode echocardiogram with Doppler and color Doppler. Blood Pressure: 151/97 mmHg INDICATION eval for cadiac function and ef RISK FACTORS Obesity: Height: 5'8, Weight: 253 DIMENSIONS LVDd5.1 (3.8-5.7cm)LA (2D)4.5 (1.9-4.0cm)Aortic Root3.6 (2.0-3.7cm) LVDs3.5 (2.5-4.0cm)LA (MM) (1.9-4.0cm)Aortic Cusp Exc2.3 (1.5-2.0cm) EF (%) 55.0 (55-70%)Rt. Atrium3.6 (1.9-4.0cm)Asc. Aorta3.4 cm IVSd1.0 (0.7-1.1cm)RV (D)3.7 (1.8-2.4cm) PWd0.8 (0.7-1.1cm) Mitral Valve MitralMitral Stenosis E wave0.87m/sMV Mean GR.mmHg A wave0.69m/sMV Peak GR.mmHg E/A ratio1.32D MVAcm2 DECEL [id number] 1/2 Timems Aortic Valve Aortic ValveAortic Stenosis V10.97m/Karoline Mean GR.3mmHg V21.13m/Karoline Peak GR.5mmHg LVOT Diameter2.2 (1.8-2.4cm)Doppler AVA3.26cm2 Pulmonic Valve V20.95m/s Tricuspid Valve TR Velocity2.08m/s [id number] Other Information Quality : Technically LimitedRhythm : Technically limited study due to body habitus. Conclusion lvef 60 % normal rv function normal atria no severe valve abnormalities noted
[2024-10-22] MEDS ORDERED: FURO1TAB31 PO (15:58)
--- NOTE | 2024-10-22 16:07 | DVHDS2 ---
Discharge Summary Date of Admission October 20, 2024 at 15:59 Date of Discharge: October 22, 2024 Labs/Diagnostic Data: Laboratory Results Test 10/22/24 12:51 10/21/24 05:58 10/20/24 18:25 10/20/24 16:30 POC Glucose 110 mg/dl (70-106) White Blood Count 7.0 10^3/uL (4.4-10.8) Red Blood Count 4.39 10^6/uL (4.5-5.90) Hemoglobin 13.9 g/dL (13.5-17.5) Hematocrit 41.2 % (41.0-53.0) Mean Corpuscular Volume 93.9 fL (80.0-100.0) Mean Corpuscular Hemoglobin 31.6 pg (28.0-32.0) Mean Corpuscular Hemoglobin Concent 33.6 g/dL (32.0-36.0) Red Cell Distribution Width 13.5 % (11.8-14.3) Platelet Count 298 10^3/uL (140-450) Mean Platelet Volume 7.2 fL (6.9-10.8) Neutrophils (%) (Auto) 50.2 % (37.0-80.0) Lymphocytes (%) (Auto) 40.4 % (10.0-50.0) Monocytes (%) (Auto) 7.5 % (0.0-12.0) Eosinophils (%) (Auto) 1.5 % (0.0-7.0) Basophils (%) (Auto) 0.4 % (0.0-2.0) Neutrophils # (Auto) 3.5 10 ^3/uL (1.6-8.6) Lymphocytes # (Auto) 2.8 10 ^3/uL (0.4-5.4) Monocytes # (Auto) 0.5 10 ^3/uL (0-1.3) Eosinophils # (Auto) 0.1 10 ^3/uL (0-0.8) Basophils # (Auto) 0 10 ^3/uL (0-0.2) Nucleated Red Blood Cells 0.1 % Sodium Level 142 mmol/L (136-145) Potassium Level 3.4 mmol/L (3.5-5.1) Chloride Level 107 mmol/L (98-107) Carbon Dioxide Level 25 mmol/L (20-31) Anion Gap 10 (5-15) Blood Urea Nitrogen 10 mg/dL (9-23) Creatinine 0.75 mg/dL (0.700-1.30) Glomerular Filtration Rate Calc 106 mL/min (>90) BUN/Creatinine Ratio 13.3 (10.0-20.0) Serum Glucose 96 mg/dL (74-106) Hemoglobin A1c 6.2 % A1C (<5.7) Calcium Level 9.8 mg/dL (8.7-10.4) Magnesium Level 1.9 mg/dL (1.6-2.6) Total Bilirubin 1.0 mg/dL (0.2-1.0) Aspartate Amino Transferase (AST) 12 U/L (13-40) Alanine Aminotransferase (ALT) 11 U/L (7-40) Alkaline Phosphatase 56 U/L (46-116) Total Protein 6.6 g/dL (5.7-8.2) Albumin 4.3 g/dL (3.2-4.8) Triglycerides Level 134 mg/dL (< 150) Cholesterol Level 97 mg/dL (< 200) LDL Cholesterol 39 mg/dL (< 100) HDL Cholesterol 37 mg/dL (40-59) Thyroid Stimulating Hormone (TSH) 3.58 uIU/mL (0.55-4.78) Troponin I High Sensitivity 10 ng/L (</=54) Prothrombin Time 10.3 sec (9.3-11.8) Prothrombin Time INR 0.97 (0.9-1.15) D-Dimer, Quantitative < 0.19 mg/L FEU (0.0-0.49) Test 10/20/24 13:48 B-Type Natriuretic Peptide 14.38 pg/mL (0-100) Other Laboratory Tests 10/21/24 05:58 Brief Hx & Hospital Course: 54-year-old male past medical history hypertension diabetes CVA with right-sided weakness hyperlipidemia denies surgical history chief complaint patient states he has been shortness of the breath that has been going on for two days patient states it is shortness of the breath worse on exertion. Patient denies any chest pain he does complain of bilateral lower extremity swelling more on the right than left denies any calf pain patient states he has been has not been able to sleep due to the pain he denies any history heart failure patient states he is taking his meds as prescribed he is not on blood thinners when evaluating patient's labs and imaging from the ED CBC was unremarkable glucose was 189 otherwise CMP unremarkable chest x-ray unremarkable with these findings we will admit patient add troponin D-dimer order echocardiogram ultrasound to rule out PE if echocardiogram is abnormal when need to consider Cards consult acute dyspnea without hypoxia cxr normal ordered ddimer fu results ordered lovenox 1mg/kg for now if ddimer is positive order ct angio ordered echo to check cardiac function and ef fu results if abnormal consult cards pt was provided lasix x1 dose in er 02 prn to keep sats >92% acute ble edema ordered us eval for dvt ordered lovenox for now suspected diastolic CHF chronic problems htn dm ISS cva with right side weakness echo is normal discussed with pt regarding d/c, pt agreed pt stated he wanted to go home to see his grandchildren who are visiting from [facility] for just the weekend discharged t to home with self care Condition at Discharge: Fair Final Diagnosis/Problems List see above Discharge Disposition: Home Discharge Instruct/Medications Diet: Cardiac 2g Na,low cholest Activity: No Restrictions, As Tolerated Discharge Statement: "Patient was advised to return to the ER or call 911 if any headaches, dizziness, shortness of breath, chest pain, abdominal pain, bleeding, fevers, or worsening of medical condition. Patient was counseled about treatment plan, medications, possible side effects, patientverbalized understanding. All questions were answered to the best of my ability. This discharge took greater then 30 minutes in planning, reviewing documentation, counseling the patient, and discussing with other team members." ASSESSMENT ASSESSMENT Assessment Date of Service: October 22, 2024 Billing Provider: SHILOH BALLESTEROS DO Common Visit Codes: [id number] DISCH DAY >30min SHILOH BALLESTEROS DO October 22, 2024 16:07
[2024-10-22] MEDS ORDERED: ENOXAPARIN SOD 100 MG/1 ML SYRINGE SC SCH (22:00)
== END 2024-10-22 18:42 | disposition home or self-care (01) | DRG 291 ==
LOC: EDBD 13:34 → EDUNIT# 13:34 → ER 13:34 → OVERFLOW 15:59 → TELE-WESTW 10-21 02:15
PROVIDERS: ADMIT Internal Medicine; ATTEND Internal Medicine
DX: I11.0 Hypertensive heart disease with heart failure (principal); I50.31 Acute diastolic (congestive) heart failure; I69.351 Hemiplegia and hemiparesis following cerebral infarction affecting right dominant side; E11.9 Type 2 diabetes mellitus without complications; E66.01 Morbid (severe) obesity due to excess calories; E78.5 Hyperlipidemia, unspecified; Z68.34 Body mass index [BMI] 34.0-34.9, adult; Z79.899 Other long term (current) drug therapy; Z79.84 Long term (current) use of oral hypoglycemic drugs; Z79.82 Long term (current) use of aspirin; Z79.01 Long term (current) use of anticoagulants
CPT/HCPCS: 36415; 71045; 80048; 80053; 80061; 82962; 83036; 83735; 83880; 84443; 84484; 85025; 85379; 85610; 93005; 93306; 93971; G0378; J1815